=== PATIENT | male | born 2005 | race Caucasian/White ===

== ENCOUNTER 2025-06-21 22:53 | Emergency (ER) | payer OTHER ==
[~2025-06-21] VITALS: Ht 170.2 cm; Wt 95.3 kg
[2025-06-22 00:54] VITALS: BP 138/47
== END 2025-06-22 00:56 | disposition home or self-care (01) ==
LOC: ED 22:53
DX: S46.012A Strain of muscle(s) and tendon(s) of the rotator cuff of left shoulder, initial encounter (principal); X50.0XXA Overexertion from strenuous movement or load, initial encounter
CPT/HCPCS: 73030; 99283